=== PATIENT | female | born 1940 | race Caucasian/White ===

== ENCOUNTER 2022-07-24 22:20 | Inpatient (IN) | payer OTHER ==
[~2022-07-24] VITALS: Ht 154.9 cm; Wt 52.2 kg
[~2022-07-24 22:20] MED LIST: IBUP-786 PO; XANAX PO
[2022-07-24 22:31] VITALS: BP_SYST 193
--- NOTE | 2022-07-24 22:32 | NUR ---
Placed in room 05 . Placed on cardiac cath technician, blood pressure machine and pulse oximeter. To gown for exam. Side rails up. Report given to Gavin MORENO.
--- NOTE | 2022-07-24 22:35 | NUR ---
Dr. Walker at bedside for MSE
[2022-07-24 23:27] LABS: BASOPHILS % (AUTO) 0.7 % (0.0-2.0); EOSINOPHILS # (AUTO) 0.1 K/uL (0.0-0.4); EOSINOPHILS % (AUTO) 2.3 % (0.0-4.0); HEMATOCRIT 37.9 % (36-48); HEMOGLOBIN 12.5 g/dL (12.0-16.0); LYMPHOCYTES # (AUTO) 1.3 K/uL (1.0-5.5); LYMPHOCYTES % (AUTO) 32.3 % (20.5-51.5); MEAN CORPUSCULAR HEMOGLOBIN 31 pg (27-31); MEAN CORPUSCULAR HGB CONC 33 % (32-36); MEAN CORPUSCULAR VOLUME 94 fL (79.0-98.0); MONOCYTES # (AUTO) 0.4 K/uL (0.0-1.0); MONOCYTES % (AUTO) 10.7 % (1.7-9.3); NEUTROPHILS # (AUTO) 2.2 K/uL (1.8-7.7); PLATELET COUNT (AUTO) 236 K/uL (130-430); RED BLOOD CELL COUNT(AUTO) 4.03 MIL/uL (4.2-6.2); RED CELL DISTRIBUTION WIDTH 13.9 % (9.0-15.0); WHITE BLOOD COUNT (AUTO) 4.1 K/uL (4.8-10.8)
--- NOTE | 2022-07-24 23:30 | NUR ---
Pt received in room [id number] sitting on stretcher. No c/o of pain/discomfort. EKG obtained and results given to MD. Labs drawn, IV started w/o incident. see flow sheet for details . Pt. admits to anxiety.Friend at bedside.
[2022-07-24 23:33] LABS: ANION GAP 8 (5-15); CALCIUM 8.6 mg/dL (8.4-11.0); CHLORIDE 104 mmol/L (98-107); CREATININE 0.78 mg/dL (0.55-1.30); GLUCOSE 107 mg/dL (70-99); UREA NITROGEN, BLOOD 22 mg/dL (8-21)
[2022-07-24 23:39] LABS: ALANINE AMINOTRANSFERASE 22 U/L (12-78); ALBUMIN 3.3 g/dL (3.4-4.8); ASPARTATE AMINOTRANSFERASE 17 U/L (10-37); TOTAL BILIRUBIN 0.2 mg/dL (0.0-1.0)
--- NOTE | 2022-07-24 23:42 | NUR ---
Med Reconciliation: Pt admits to taking only 2 meds. 0.5mg Xanax po prn once daily and a blood pressure medicine. Pt does not remember name of bp name. Dr. Walker notified.
[2022-07-24] MEDS ORDERED: ENALAPRILAT DIHYDRATE 1.25 MG/ML VIAL IVP ONE (23:45)
[2022-07-25] MEDS ORDERED: hydrALAZINE HCL 20 MG/ML VIAL IVP PRN (00:30)
--- NOTE | 2022-07-25 00:57 | NUR ---
Admit bed requested Patient will be admitted to care of . Admitted to Telemetry unit. Diagnosis Uncontrolled Hypertension Inpatient (Yes or No) y Observation (Yes or No) n Orientation concerns or request close to nursing station (Yes or No)No Covid Status negative On vent or bipapNO Isolation requirements None Needs a sitter No From Home (Yes or if No enter name of facility)Yes Requires Dialysis (Yes or No) No Med Rec Completed (Yes of No) yes
--- NOTE | 2022-07-25 03:00 | NUR ---
Pt. transferred to Telemetry Rm 121a via stretcher. Pt. ambulated to bed upon arrival to floor. No complaints at this time. Portable bus driver/monitor in use. Endorsed injury free to Ru MORENO.
--- NOTE | 2022-07-25 03:05 | NUR ---
PT RECEIVED IN ROOM FROM ED STAFF MAREN MORENO. PT CURRENTLY DENIES CHEST PAIN/SOB/
--- NOTE | 2022-07-25 03:19 | NUR ---
REPORT RECEIVED FROM ED STAFF MAREN RN, PT DENIES ANY CP/SOB. VSS.
[2022-07-25 03:21] VITALS: BP_SYST 136
[2022-07-25 03:27] VITALS: BP_SYST 136
[2022-07-25 06:40] VITALS: BP_SYST 124
[2022-07-25 08:00] VITALS: BP_SYST 118
--- NOTE | 2022-07-25 08:00 | NUR ---
OPENING NOTES: PT IN BED A/O X4. PT INQUIRED ABOUT DISCHARGE. TOLD PT WILL FOLLOW UP WITH AND UPDATE HER WHEN MORE INFORMATION IS RECEIVED. NO S/S OF DISTRESS OR PAIN REPORTED. BREATHING IS EVEN AND UNLABORED ON RA. ALL NEEDS MET AT THIS TIME, SAFETY CHECKS MADE AND CALL LIGHT WITHIN REACH.
--- NOTE | 2022-07-25 08:09 | NUR ---
MD: SPOKE WITH DR. VILLEGAS REGARDING PT'S DIET. DIET ORDER WAS PUT IN FOR DINNER. CONFIRMED THAT PT HAD NO PROCEDURES IN ORDER HISTORY PENDING AND THAT PT COULD HAVE BREAKFAST. DR VILLEGAS ORDERED PT TO HAVE BREAKFAST. ORDER CHANGED.
[2022-07-25] MEDS ORDERED: ONDANSETRON HCL 4 MG/2 ML VIAL IVP PRN (08:15)
[2022-07-25] MEDS ORDERED: ACETAMINOPHEN 500 MG TABLET PO PRN (08:15)
[2022-07-25] MEDS ORDERED: NITROGLYCERIN 0.4 MG TAB.SUBL SL PRN (08:15)
[2022-07-25] MEDS ORDERED: MORPHINE 2 MG/ML INJ. SYRINGE IVP PRN (08:15)
[2022-07-25] MEDS ORDERED: ALPRAZolam 0.25 MG TABLET PO PRN (08:15)
[2022-07-25] MEDS ORDERED: HYDROcodone/ACETAMIN 7.5-325 MG TAB PO PRN (08:15)
[2022-07-25] MEDS ORDERED: ZOLPIDEM TARTRATE 5 MG TABLET PO PRN (08:15)
[2022-07-25] MEDS ORDERED: DOCUSATE SODIUM 100 MG/10 ML UDC PO PRN (08:15)
[2022-07-25] MEDS ORDERED: guaiFENesin/DEXTROMETHORPHAN 10 ML UDC PO PRN (08:15)
--- NOTE | 2022-07-25 08:21 | NUR ---
MD: DR VILLEGAS AT BEDSIDE. DR VILLEGAS INFORMED ME THE PT IS GOING AMA. PRINTING UP THE DOCUMENTS AND HAVING THE PT SIGN IT.
[2022-07-25] MEDS ORDERED: ASPIRIN 81 MG TAB.CHEW PO SCH (09:00)
[2022-07-25] MEDS ORDERED: ATORVASTATIN 10 MG TABLET PO SCH (09:00)
[2022-07-25] MEDS ORDERED: METOPROLOL TARTRATE 25 MG TABLET PO SCH (09:00)
[2022-07-25] MEDS ORDERED: PANTOPRAZOLE SODIUM 40 MG TAB PO SCH (09:00)
[2022-07-25] MEDS ORDERED: lisinopriL 5 MG TABLET PO SCH (09:00)
[2022-07-26] MEDS ORDERED: POTASSIUM CHLORIDE 20 MEQ TAB.PRT.SR PO PRN (09:00)
== END 2022-07-25 08:40 | disposition left against medical advice (07) | DRG 304 ==
LOC: SED 22:20 → STU 07-25 00:16
PROVIDERS: ADMIT Family Medicine; ATTEND Family Medicine
DX: I16.1 Hypertensive emergency (principal); I26.99 Other pulmonary embolism without acute cor pulmonale; I51.7 Cardiomegaly; F41.9 Anxiety disorder, unspecified; Z20.822 Contact with and (suspected) exposure to COVID-19; I10 Essential (primary) hypertension; R00.2 Palpitations; Z88.5 Allergy status to narcotic agent; Z53.29 Procedure and treatment not carried out because of patient's decision for other reasons
CPT/HCPCS: 36415; 71045; 80053; 83880; 84484; 85025; 85379; 85610-TC; 85730-TC; 93005; 99285; G0378